=== PATIENT | male | born 1990 | race Caucasian/White ===

== ENCOUNTER → 2018-08-23 | Outpatient (CLI) | payer SELFPAY ==
[~2018-08-23] MED LIST: ACET325; AZIT250 PO; CYCL10 PO; DIAZ5 PO; HYDACE5 PO; HYDACE5325 PO; HYDR1TAB94 PO; IBUP600 PO; IBUP800 PO; LANS30EC PO; NAPR550 PO; Norco 10-325 T1 EACH PO; Norco 5-325 Ta1 EACH PO; OMEP20ER PO; PENVK250 PO; PENVK500 PO; PROM25 PO; RXCYCL10 PO; RXHYDACE PO; RXNAPNA550 PO; TRAM50 PO; [UNRECOGNIZED DRUG - OTHER]
[2018-08-25 23:08] LABS: CHLAMYDIA TRACHOMATIS, NAA Negative (Negative); NEISSERIA GONORRHOEAE, NAA Negative (Negative)
== END ==
LOC: LAB SHORT 17:53 → LAB 17:53
PROVIDERS: Registered Nurse Community Health
DX: Z11.3 Encounter for screening for infections with a predominantly sexual mode of transmission (principal)
CPT/HCPCS: 87491; 87591